=== PATIENT | female | born 1985 | race Caucasian/White ===

== ENCOUNTER 2021-08-23 16:06 | Emergency (ER) | payer OTHER, SELFPAY ==
--- NOTE | ~2021-08-23 | XR_ITS ---
EXAMINATION: XR chest 2V DATE: 08/23/2021 16:59 INDICATION: 6 days of cough TECHNIQUE: PA and lateral views of the chest were obtained. COMPARISON: None FINDINGS: Mild elevation of the left hemidiaphragm. Lungs are clear with no focal airspace opacities, pulmonary edema, pleural effusion or pneumothorax. The cardiomediastinal silhouette is normal. Visualized bone s and soft tissues are unremarkable. IMPRESSION: 1. No acute cardiopulmonary disease. Reviewed, dictated and finalized at location B. [employer]
[2021-08-23 16:15] VITALS: BP 157/95; PULSE 79; RESP 14; TEMP 36.6; O2SAT 100
[2021-08-23 16:23] VITALS: BP 157/95; PULSE 79; RESP 14; TEMP 36.6; O2SAT 100
--- NOTE | 2021-08-23 16:47 | ED.URI ---
HPI - URI/Sore Throat General Chief Complaint: Upper Respiratory Infection Stated Complaint: Cough Time Seen by Provider: 08/23/21 16:47 Source: patient and RN notes reviewed Mode of arrival: ambulatory Limitations: no limitations History of Present Illness HPI Narrative: 35 year old female presents with concern for cough for 6 days. Reports nasal congestion and runny nose. Reports cough is worsening with coughing fits. Denies fever, body aches, chills, loss of taste or smell. Reports OTC medications are not helping. Denies covid exposure. MD elicited complaint: cough and sore throat Related Data Allergies Allergy/AdvReac Type Severity Reaction Status Date / Time diphenhydramine Allergy Hallucinati Verified 08/23/21 16:23 [From Neda] elaine Review of Systems Review of Systems: CONSTITUTIONAL: Reports malaise. Denies chills, sweats, or fever. EYES: Denies visual changes, redness, or discharge. ENT: Reports rhinorrhea, congestion. Denies sinus pain, otalgia and sore throat. CARDIOVASCULAR: Denies chest pain, palpitations, or edema. RESPIRATORY: Reports persistent cough. Denies dyspnea. GASTROINTESTINAL: Denies abdominal pain, nausea, vomiting, diarrhea SKIN: Denies rash or itching. MUSCULOSKELETAL: Denies myalgia. NEUROLOGIC: Denies headache. All systems reviewed & are unremarkable except as noted in HPI and below PMFSH Comments At time of signature, agree with nursing past medical, surgical, social and family history. There is no relevant family history pertinent to the presenting complaint Exam Narrative: GENERAL: Well-appearing, well-nourished, and in no acute distress. HEAD: Normocephalic EYES: PERRLA, conjunctivae clear ENT: Nares clear, clear discharge. Mucous membranes moist. TM pearly myers with dull light reflex bilaterally; no tragal tenderness. Oropharynx not erythematous without lesions. Tonsils not enlarged and without exudate, no drooling, no hoarseness, no trismus, uvula midline. NECK: Supple. No lymphadenopathy CHEST: Clear to auscultation, breath sounds diminished in the LLL. No wheezing, rhonchi, rales, or stridor. No respiratory distress, speaks in full sentences. HEART: Regular rate and rhythm. No murmur heard. SKIN: Warm, dry, no rash. NEURO: Alert and oriented x3. PSYCH: Normal mood and affect Course Course Emergency Course: Patient is aware of diagnosis, understands and agrees to treatment plan. Anticipatory guidance given. Patient agrees to follow-up as directed and is aware of reasons to seek care at the emergency department. Portions of this record may have been created with voice recognition software Level of Care: Express Care Visit Vital Signs Vital signs: Vital Signs Temperature 97.9 F 08/23/21 16:15 Pulse Rate 79 08/23/21 16:15 Respiratory Rate 14 08/23/21 16:15 Blood Pressure 157/95 H 08/23/21 16:15 Pulse Oximetry 100 08/23/21 16:15 Temperature 97.9 F 08/23/21 16:23 Pulse Rate 79 08/23/21 16:23 Respiratory Rate 14 08/23/21 16:23 Blood Pressure 157/95 H 08/23/21 16:23 Pulse Oximetry 100 08/23/21 16:23 Reviewed. Patient advised to follow up regarding BP MDM - URI/Sore Throat MDM Narrative Medical decision making narrative: Differential diagnosis considered: Soliman virus, strep pharyngitis, allergic rhinitis, upper respiratory tract infection, sinusitis, rhinosinusitis, nasopharyngitis. viral pharyngitis, otitis media, otitis externa, pneumonia, bronchitis, viral cough syndrome, viral syndrome, and influenza. Exam findings show no acute concerns or changes; patient is non-toxic appearing and is in no distress. Patient is appropriate for outpatient treatment and follow-up. Lab Data Attestation: I reviewed the patient's lab results. Imaging Data My impression: Images reviewed, interpreted by radiologist, agree, see report. Radiologist's impression: EXAMINATION: XR chest 2V DATE: 08/23/2021 16:59 INDICATION: 6 days of cough TECHNIQUE: PA and lat
== END 2021-08-23 17:21 | disposition home or self-care (01) ==
PROVIDERS: Nurse Practitioner Family; Emergency Provider Nurse Practitioner; PCP Internal Medicine
DX: J06.9 Acute upper respiratory infection, unspecified (principal); Z20.822 Contact with and (suspected) exposure to COVID-19
CPT/HCPCS: 71046; 87426; 99213; C9803; G0463

== ENCOUNTER 2021-12-29 12:30 | Emergency (ER) | payer OTHER, SELFPAY ==
--- NOTE | 2021-12-29 12:37 | ED.URI ---
HPI - URI/Sore Throat General Chief Complaint: Upper Respiratory Infection Stated Complaint: Cough/Sinus Pain Time Seen by Provider: 12/29/21 12:37 Source: patient and RN notes reviewed History of Present Illness HPI Narrative: Patient is a 36-year-old female who presents the urgent care with her spouse with complaints of cough and sinus pressure. Patient states that it started last Thursday and she has a dry cough without wheezing for the last 3 days. Patient has been using Shelia-[place]. Patient had like symptoms a few months ago and was placed on steroids and antihistamines. Patient denies of any recent fever or exposure to illness. No other acute complaints. No acute distress noted. Patient aware of the plan of care. Some parts of this dictation were generated by voice recognition software and may contain typographical and/or grammatical inaccuracies. Related Data Home Medications Medication Instructions Recorded Confirmed drospirenone-ethinyl estradiol 1 tablet PO DAILY 12/29/21 12/29/21 [Low (28)] Allergies Allergy/AdvReac Type Severity Reaction Status Date / Time diphenhydramine Allergy Hallucinati Verified 08/23/21 16:23 [From Benadalvarol] elaine Review of Systems Review of Systems: CONSTITUTIONAL: Denies fever, chills, or sweats. EYES: Denies visual changes, redness, or discharge. ENT: Reports of congestion, bilateral otalgia/pressure, postnasal drainage and sinus pressure CARDIOVASCULAR: Denies chest pain, palpitations, or edema. RESPIRATORY: Reports of dry cough without dyspnea GASTROINTESTINAL: Denies abdominal pain, nausea, vomiting, or diarrhea. GENITOURINARY: Denies dysuria or hematuria. SKIN: Denies rash or itching. MUSCULOSKELETAL: Denies back pain, joint pain, or myalgia. NEUROLOGIC: Denies headache, numbness, or weakness. All other systems reviewed are negative, except as documented in HPI. PMFSH Comments At the time of my signature, I reviewed and agree with the nursing past medical, surgical, social, and family history. There is no relevant family history pertinent to the patient complaint. Exam Narrative: GENERAL: This is a well-nourished, well-developed patient, in no apparent distress. HEAD: normocephalic, atraumatic. EYES: PERRL. Sclera clear/white. Vision is grossly intact. EARS: External ears normal, auditory canals clear and without drainage, bilateral cerumen without impaction. TMs normal without perforation. Hearing grossly intact. NOSE: External nose normal with no obvious nasal discharge, bilateral erythemic nares with clear to yellow rhinorrhea THROAT: Mucous membranes moist, posterior pharynx clear. Mild to moderate postnasal drainage NECK: Neck supple CARDIOVASCULAR: Regular rate and rhythm without murmurs, gallops, or rubs. RESPIRATORY: Dry cough noted on exam. Clear to auscultation. Breath sounds equal bilaterally. No wheezes, rales, or rhonchi. SKIN: warm, intact with no suspicious lesions or rash, good texture and turgor. NEURO: awake, alert, and oriented to person, place and time. There were no obvious focal neurologic abnormalities. EXTREMITIES: No clubbing, cyanosis, or edema. Course Course Level of Care: Express Care Visit Vital Signs Vital signs: Vital Signs Temperature 98.8 F 12/29/21 12:40 Pulse Rate 70 12/29/21 12:40 Respiratory Rate 18 12/29/21 12:40 Blood Pressure 128/79 12/29/21 12:40 Pulse Oximetry 100 12/29/21 12:40 Temperature 98.8 F 12/29/21 12:40 Pulse Rate 70 12/29/21 12:40 Respiratory Rate 18 12/29/21 12:40 Blood Pressure 128/79 12/29/21 12:40 Pulse Oximetry 100 12/29/21 12:40 Reviewed MDM - URI/Sore Throat MDM Narrative Medical decision making narrative: Advised the patient take a daily antihistamine such as Claritin or Zyrtec [id number]. You can find those in liquid or chewable forms. Use of Flonase nasal spray every night prior to bedtime. Use a humidifier at night and do not sleep with the win
[2021-12-29 12:40] VITALS: BP 128/79; PULSE 70; RESP 18; TEMP 37.1; O2SAT 100
== END 2021-12-29 13:05 | disposition home or self-care (01) ==
PROVIDERS: Emergency Provider Nurse Practitioner Family; PCP Internal Medicine
DX: J32.9 Chronic sinusitis, unspecified (principal); T78.40XA Allergy, unspecified, initial encounter
CPT/HCPCS: 99213; G0463

== ENCOUNTER 2022-06-14 11:09 | Emergency (ER) | payer OTHER, SELFPAY ==
--- NOTE | ~2022-06-14 | XR_ITS ---
XR hand RT min 3V 06/14/2022 11:39 INDICATION: Right hand pain PROCEDURE: 3 views right hand COMPARISON: No prior studies for comparison. FINDINGS: Fracture, dislocation or subluxation is not identified. No fracture, subluxation or disloca tion. No significant soft tissue abnormality. No foreign bodies. The soft tissues appear within alyssa l limits. No foreign bodies are identified. IMPRESSION: 1: NO ACUTE BONE OR JOINT ABNORMALITY IDENTIFIED. Reviewed, dictated and finalized at location A.
[2022-06-14 11:27] VITALS: BP 143/70; PULSE 86; RESP 16; TEMP 36.6; O2SAT 100
--- NOTE | 2022-06-14 13:47 | ED.UPPEXIN ---
HPI - Extremity Injury (Upper) General Chief Complaint: Extremity Injury, Upper Stated Complaint: Right Hand Pain Time Seen by Provider: 06/14/22 13:47 Source: patient, RN notes reviewed and old records reviewed Mode of arrival: ambulatory Limitations: no limitations History of Present Illness HPI narrative: 36-year-old female presents to express care with complaints of possibly hitting her right hand on something at work this week. Patient reports pain to the dorsal aspect of her right hand with no swelling or ecchymosis noted. Patient reports that she has been treated for carpal tunnel to her right hand in past Patient reports that she has used ice to her right hand and taken Ibuprofen. MD complaint: injury to: right and hand Onset (ago): week(s) (1) Severity scale (1-10): 2 Treatments prior to arrival: cold therapy and NSAIDS Related Data Home Medications Medication Instructions Recorded Confirmed drospirenone 3 mg-ethinyl 1 tablet PO DAILY 12/29/21 06/14/22 estradiol 0.02 mg tablet (Ashantiynzara (28)) Allergies Allergy/AdvReac Type Severity Reaction Status Date / Time diphenhydramine AdvReac Mild Hallucinati Verified 06/14/22 12:22 [From Neda] ng Review of Systems Review of Systems: CONSTITUTIONAL: Denies fever, chills, or sweats. CARDIOVASCULAR: Denies chest pain, palpitations, or edema. RESPIRATORY: Denies cough or dyspnea. SKIN: Denies rash or itching. Denies lacerations or abrasions MUSCULOSKELETAL: Reports pain to dorsal aspect of right hand NEUROLOGIC: Denies numbness, or weakness. All systems reviewed & are unremarkable except as noted in HPI and below PMFSH Past Medical History Medical History (Updated 06/20/22 @ 13:43 by Sparkle Schafer NP) Carpal tunnel syndrome, right Fracture of right ankle Surgical History Surgical History (Updated 06/20/22 @ 13:43 by Sparkle Schafer NP) H/O unilateral oophorectomy right Social History Social History (Updated 06/20/22 @ 13:42 by Sparkle Schafer NP) Smoking status: Never smoker Living arrangements: with family Gender identity (if verbalized by the patient): Female Comments At time of signature, agree with nursing past medical, surgical, social and family history. There is no relevant family history pertinent to the presenting complaint Exam Narrative: GENERAL: Well-appearing, well-nourished, and in no acute distress. HEAD: Normocephalic, atraumatic. EYES: PERRLA, conjunctivae clear NECK: Supple. CHEST: Speaks in full sentences. No respiratory distress.SAO2 100% on room air HEART: Regular rate and rhythm. Normal and equal peripheral pulses. EXTREMITIES: right hand has normal strength and sensation, normal range of motion. No edema or ecchymosis. 5/5 strength with normal flexion and extension. Normal sensation with sensitivity to light touch and pain.Some point tenderness at 4th web space and to right thumb.? No open wounds, no skin tenting, no devitalized tissue or atrophy, no trophic changes, no obvious deformity, alignment normal, nearby joints and structures intact. Distal pulses palpable and equal bilaterally, skin warm, dry, pink. Capillary refill less than 3 seconds. Course Course Level of Care: Express Care Visit Vital Signs Vital signs: Vital Signs Temperature 36.6 C 06/14/22 11:27 Pulse Rate 86 06/14/22 11:27 Respiratory Rate 16 06/14/22 11:27 Blood Pressure 143/70 H 06/14/22 11:27 Pulse Oximetry 100 06/14/22 11:27 Oxygen Delivery Room Air 06/14/22 11:27 Temperature 36.6 C 06/14/22 11:27 Pulse Rate 86 06/14/22 11:27 Respiratory Rate 16 06/14/22 11:27 Blood Pressure 143/70 H 06/14/22 11:27 Pulse Oximetry 100 06/14/22 11:27 Oxygen Delivery Room Air 06/14/22 11:27 MDM - Extremity Injury (Upper) MDM Narrative Medical decision making narrative: Patient's injury and or pain is consistent with musculoskeletal etiology. No signs of neurological or vascula
== END 2022-06-14 14:08 | disposition home or self-care (01) ==
PROVIDERS: Emergency Provider Registered Nurse; PCP Internal Medicine
DX: M79.641 Pain in right hand (principal)
CPT/HCPCS: 73130; 99213; G0463